=== PATIENT | male | born 1995 ===

== ENCOUNTER 2017-03-06 16:59 | Emergency (ER) | payer OTHER ==
[2017-03-06 17:04] VITALS: TEMP 36.5
--- NOTE | 2017-03-06 18:24 | DIAGNOSTIC IMAGING REPORT ---
LEFT KNEE 3 VIEWS CLINICAL HISTORY: left knee pain COMPARISON: None. DISCUSSION: No fractures or dislocations are visualized. No erosive or destructive changes are visualized. IMPRESSION: No fractures, dislocations, or destructive lesions are visualized. Electronically signed by: Chan Mathis M.D. 03/06/2017 6:23 PM Dictated Date/Time: 03/06/2017 6:23 PM
[2017-03-06] MEDS ORDERED: IBUP-1427 PO (18:57)
--- NOTE | 2017-03-06 18:59 | EMERGENCY ROOM VISIT NOTE ---
ED Visit Note First contact with patient: 17:18 CHIEF COMPLAINT: Left knee pain HISTORY OF PRESENT ILLNESS: This 21-year-old male patient presents to the emergency department complaining of left knee pain for approximately 5 days. The patient states he was recently at a convention, where he was doing a lot of walking. He states he spontaneously began experiencing knee pain, worse while walking, and worse with walking up stairs. The patient does not recall specific injury, however does state the pain began while at the convention and doing more walking than he normally does. The patient denies swelling or bruising. There is pain over the anterior right knee. They rate the pain as "stinging" and 7/10. The patient states they are able to walk on it. No numbness or tingling. The patient does have a previous history of anterior cruciate ligament sprain, and lateral dislocation of the patella of this knee in 2012. No ankle, foot or hip pain. The patient has been taking Aleve, 220 mg twice a day 3 days. He states this has not really helped with the discomfort. REVIEW OF SYSTEMS: A 6 system review of systems was completed with positives and pertinent negatives listed in the HPI. ALLERGIES: None MEDICATIONS: None PMH: Appendicitis, various bone fractures SOCIAL HISTORY: Patient lives locally with a roommate. He denies alcohol, drug , tobacco use. PHYSICAL EXAM: Vital Signs: Reviewed Nurse's notes, vital signs stable. GENERAL : 21-year-old male, no acute distress, but appears in pain, well-developed, well -nourished. MENTAL STATUS: Alert, oriented to person place and time, and cooperative. MUSCULOSKELETAL: The left knee is not swollen. There is no ecchymosis. There is no joint effusion present. The patient is tender anteriorly. There is no joint line tenderness. The patella does appropriately subluxate. Range of motion is normal. Strength of the quads and hamstrings is 5/ 5. Prabhjot's is negative. Sherif's and Anterior Drawer tests are negative. There is minimal discomfort with varus and valgus stressing. The foot and toes are warm and well-perfused. Dorsalis pedis pulse 2+. Sensation to pain and light touch is intact. Capillary refill less than 2 seconds. EMERGENCY DEPARTMENT COURSE: I examined the patient. X-rays of the left knee were reviewed by myself and read by radiology and reveal DISCUSSION: No fractures or dislocations are visualized. No erosive or destructive changes are visualized. IMPRESSION: No fractures, dislocations, or destructive lesions are visualized. I discussed with the patient ordering labs to rule out Lyme disease. The patient states he does not feel that this is an issue, and will follow up with [facility] if he continues to experience pain and discomfort on Friday. Discussed with him the risks of not testing and treating for this disease immediately, and patient verbalizes understanding. I suspect an overuse injury. The patient was instructed on the use of crutches, but declines crutches here, as he believes he has some at home. The patient was discharged home in good condition. DIFFERENTIAL DIAGNOSIS: Patellar fracture, proximal tibia fracture, distal femur fracture, meniscal injury, ACL or PCL tear or sprain, and others. DIAGNOSIS: Left knee pain DISCHARGE INSTRUCTIONS: You have been treated in the Emergency Department for Knee Pain. You have been prescribed ibuprofen 600mg to be used for pain control. Take this medication as prescribed. For pain control, you can use the following wptn-vdy-lufuaxs medicines (if >12 yo): - Regular strength (325mg/tab) Tylenol (acetaminophen) 2 tabs every 4-6 hours as needed. Do not exceed 12 tablets in a 24 hour period. Avoid taking more than 4 grams (4000 mg) of Tylenol per day. This includes any other sources of acetaminophen you may take on a regular basis. If this is a recent injury (<24 hrs), ice can be applied to the area of pain for the first 3 days to help decrease pain and inflammation. Ice massages can be performed by freezing water in a paper cup, peeling back the cup to expose the ice and then massaging over the affected area. You have been provided the number for an Orthopaedic Surgeon. You should call this number as soon as possible to establish a follow-up visit from today's Emergency Department visit. Use the crutches you have at home to keep ALL weight off of the knee until weight bearing is tolerable. You should consider follow-up with [facility] for possible testing for Lyme disease. I did suggest to have this test completed in the emergency department, however to time constraints, you refused. You should follow up with knee pain is not improving and have this test performed outpatient. Return to the Emergency Department if your current symptoms worsen despite treatment course outlined above. Current/Historical Medications Scheduled PRN Ibuprofen Tab (Motrin), 600 MG PO Q6H PRN for Pain Allergies Coded Allergies: No Known Allergies (Unverified , 03/06/17) Vital Signs Date Time Temp Pulse Resp B/P (MAP) Pulse Ox O2 Delivery O2 Flow Rate FiO2 03/06/17 19:04 59 18 116/59 99 03/06/17 17:04 36.5 73 18 118/77 100 Room Air Departure Information Impression Primary Impression: Left anterior knee pain Dispostion Home / Self-Care Condition GOOD Prescriptions Ibuprofen Tab (MOTRIN) 600 Mg Tab 600 MG PO Q6H Y for Pain, #30 TAB Prov: Lila Vega, CHRISTIANO 03/06/17 Referrals [facility] (PCP) Eddie Reyes M.D. Patient Instructions ED Knee Pain [facility], My [facility] Additional Instructions You have been treated in the Emergency Department for Knee Pain. You have been prescribed ibuprofen 600mg to be used for pain control. Take this medication as prescribed. For pain control, you can use the following ogpu-bdv-cidcfrt medicines (if >12 yo): - Regular strength (325mg/tab) Tylenol (acetaminophen) 2 tabs every 4-6 hours as needed. Do not exceed 12 tablets in a 24 hour period. Avoid taking more than 4 grams (4000 mg) of Tylenol per day. This includes any other sources of acetaminophen you may take on a regular basis. If this is a recent injury (<24 hrs), ice can be applied to the area of pain for the first 3 days to help decrease pain and inflammation. Ice massages can be performed by freezing water in a paper cup, peeling back the cup to expose the ice and then massaging over the affected area. You have been provided the number for an Orthopaedic Surgeon. You should call this number as soon as possible to establish a follow-up visit from today's Emergency Department visit. Use the crutches you have at home to keep ALL weight off of the knee until weight bearing is tolerable. You should consider follow-up with [facility] for possible testing for Lyme disease. I did suggest to have this test completed in the emergency department, however to time constraints, you refused. You should follow up with knee pain is not improving and have this test performed outpatient. Return to the Emergency Department if your current symptoms worsen despite treatment course outlined above.
[2017-03-06 19:04] VITALS: BP 116/59; PULSE 59; O2SAT 99
== END 2017-03-06 19:04 | disposition home or self-care (01) ==
LOC: C.EDB 17:01 → C.EDD 19:04
DX: M25.562 Pain in left knee (principal)

== ENCOUNTER 2017-10-05 12:05 | Emergency (ER) | payer OTHER ==
[~2017-10-05] VITALS: Ht 170.2 cm; Wt 87.4 kg
[2017-10-05 12:12] VITALS: TEMP 36.7; Ht 170.2 cm; Wt 87.4 kg
--- NOTE | 2017-10-05 13:10 | DIAGNOSTIC IMAGING REPORT ---
L ELBOW MIN 3 VIEWS ROUTINE CLINICAL HISTORY: 22 years-old Male presenting with L elbow pain. TECHNIQUE: Frontal, oblique, and lateral views of the left elbow were obtained. COMPARISON: None. FINDINGS: No elbow joint effusion. No acute fracture or malalignment. No degenerative change. No soft tissue abnormality. IMPRESSION: No acute osseous injury of the left elbow. Electronically signed by: Jairo Dickson M.D. 10/05/2017 1:08 PM Dictated Date/Time: 10/05/2017 1:07 PM
[2017-10-05 14:05] VITALS: BP 135/68; PULSE 62; O2SAT 98
--- NOTE | 2017-10-07 09:18 | EMERGENCY ROOM VISIT NOTE ---
ED Visit Note First contact with patient: 12:16 Chief Complaint: Left arm pain. History of Present Illness: Mr. Mccoy is a 22-year-old male who ambulates into the ED accompanied by 2 male friends complaining of left forearm pain just inferior to the elbow. He reports he was having some mild pain in this area 2 days ago that started spontaneously and could not identify the cause. Then yesterday he went snowboarding and fell on his arm multiple times and his pain quickly worsened. He denies any previous significant injuries or traumas to this area. Currently he describes his pain as a deep achy sensation that becomes sharp with palpation and movement. He rates his discomfort 8/10. The pain is nonradiating. Pain worsens with pronation, supination, flexion, extension and radial and ulnar deviation of the wrist. He has not identified any alleviating factors related to the pain. He has not taken a medication for pain prior to arrival at the hospital. He denies any associated symptoms including neck pain , shoulder pain, elbow pain, proximal forearm pain, hand pain, hand/finger weakness/numbness/tingling. Review of Systems: As noted above in history of present illness. Past Medical History: Patient denies. Current Medications: Patient denies. Allergies to Medications: Patient denies. Social History: Patient is currently in University student; he feels safe in his home environment; he denies tobacco use and admits to alcohol use. Physical Examination: Vital Signs: Date Time Temp Pulse Resp B/P (MAP) Pulse Ox O2 Delivery O2 Flow Rate FiO2 10/05/17 14:05 62 20 135/68 98 10/05/17 12:12 36.7 99 18 113/73 98 Room Air GENERAL: 22-year-old male in mild distress due to pain, nontoxic-appearing, afebrile and hemodynamically stable. NEUROLOGICAL: Awake, alert and oriented to person, place and time. Answering questions appropriately and following commands. SKIN: Warm, dry and pink. No soft tissue eruptions or trauma noted. LEFT UPPER EXTREMITY: No gross bony deformities. No tenderness in the shoulder , humerus, forearm, wrist or hand. Patient has mild tenderness over the lateral joint line of the elbow in the area of the pronator muscle group. I do not appreciate any bony deformity, bony crepitus, swelling. Patient does have full range of motion of the elbow and forearm against resistance. No tenderness over the biceps tendon. No ligamentous laxity was noted. Throughout the forearm and hand the skin was warm and pink and capillary refill is brisk. She was able to distinguish light sensations through all dermatomes. ED Course: Patient is assessed as noted above. Patient's medication list was reviewed. Patient was given ice for pain and comfort. Left Elbow X-Rays: Were read by myself and the radiologist shows no acute fractures or dislocations. No joint effusions. Patient was educated about today's findings and instructed on his treatment plan ; he verbalized understanding and agreement with this plan. Clinical Impression: Left forearm pain. Disposition: Patient discharged home in stable condition accompanied by his friends; prior to departure he was reassessed and subjectively reported he was feeling better and rated his discomfort 6/10 Plan: Comfort measures including rest, ice, alternating ibuprofen and acetaminophen were discussed with the patient. Patient was encouraged to follow-up with orthopedics if no better in 7 days. Patient was encouraged return ED for worsening/uncontrolled pain, any redness or swelling, fevers, arm/hand weakness/numbness/tingling or any new/concerning symptoms.
== END 2017-10-05 14:08 | disposition home or self-care (01) ==
LOC: C.EDB 12:07 → C.EDD 14:08
DX: M79.632 Pain in left forearm (principal)